=== PATIENT | male | born 1965 | race Caucasian/White ===

== ENCOUNTER 2017-12-11 13:49 | Inpatient (IN) | payer MEDICARE ==
[2017-12-11] VITALS (7 sets, daily range): BP systolic 107–115; BP diastolic 42–57
[~2017-12-11] VITALS: Ht 182.9 cm; Wt 86.6 kg
[~2017-12-11 13:49] MED LIST: LORTAB 5 OR; [UNRECOGNIZED DRUG - REMARK]; no home meds
--- NOTE | 2017-12-11 14:00 | NUR ---
PT AMBULATORY TO ROOM.
--- NOTE | 2017-12-11 14:45 | NUR ---
PATIENT MEDICATED WITH 30 MG OF TRADOL AND IV FLUIDS BOLUS. REPORTS NAUSEA AND ABD PAIN TO RIGHT LOWER QUADRANT. QUINN BEVERLY INFORMED. AWAITING NEW ORDERS.
[2017-12-11 14:52] LABS: HEMATOCRIT 46.9 % (39.0-50.0); HEMOGLOBIN 15.9 g/dl (14.0-18.0); IMMATURE GRANULOCYTES 0.5 % (0.0-1.0); MEAN CORPUSCULAR HGB 29.8 pG CALC (26.0-32.0); MEAN CORPUSCULAR HGB CONC 33.9 g/L CALC (32.0-36.0); NEUT# 15.17 thou/uL (1.82-7.42); RED BLOOD COUNT 5.33 mill/uL (4.70-6.10); RED CELL DISTRI WIDTH 12.7 % (11.5-15.5)
--- NOTE | 2017-12-11 15:00 | NUR ---
PATIENT MEDICATED WITH 4 MG OF ZOFRAN. EKG COMPLETED. WILL CONTINUE TO MONITOR.
[2017-12-11 15:14] LABS: ALKALINE PHOSPHATASE 106 u/l (38-126); ANION GAP 16 (6-22 (CALC)); BILIRUBIN, TOTAL 0.5 mg/dL (0.0-1.4); BUN 9 mg/dL (9-20); BUN/CREATININE RATIO 10 (12-20 (CALC)); CARBON DIOXIDE 23 mmol/l (22-30); CHLORIDE 106 mmol/l (95-108); CREATININE 0.8 mg/dL (0.7-1.3); GFR > 60 ML/MIN (>=60 (CALC)); GFR FOR AFR.AMER. > 60 ML/MIN (>=60 (CALC)); LIPASE 74 u/l (23-300); POTASSIUM 3.8 mmol/l (3.5-5.1); SGOT/AST 16 u/l (17-59); SGPT/ALT 42 u/l (21-72); SODIUM 141 mmol/l (137-146); TOTAL PROTEIN 6.6 g/dL (6.3-8.2)
--- NOTE | 2017-12-11 15:20 | NUR ---
PATIENT RESTING ON STRETCHER WITH COVERS OVER FACE, ALERT AND ORIENTED. REPORTS ABD PAIN 4/10 AT THIS TIME DENIES NAUSEA. NO VOMITING NOTED AT THIS TIME. URINAL PLACED WITHIN REACH. ASKED TO CALL FOR ASSISTANCE.
--- NOTE | 2017-12-11 16:20 | NUR ---
PATIENT DOES NOT RECALL NAMES OF HOME MEDICATIONS.
--- NOTE | 2017-12-11 16:20 | NUR ---
PHARMACY CONSULT ORDER PLACED. IV ANTIBIOTICS INFUSING WELL. WILL CONTINUE TO MONITOR.
--- NOTE | 2017-12-11 16:44 | NUR ---
ATTEMPT MADE TO CALL REPORT. SPOKE TO LENO. NURSE NOT AVAILABLE AT THIS TIME.
--- NOTE | 2017-12-11 16:46 | NUR ---
PATIENT REPORTS PAIN LEVEL 4/10 AT THIS TIME. UPDATED ON PLAN OF CARE. VERBAL UNDERSTANDING.
--- NOTE | 2017-12-11 16:56 | NUR ---
Med Rec consult received by Pharmacy. Per Liz, pt receives medication through ID. Liz will request that the pt have a family member bring in all meds to update home med list.
--- NOTE | 2017-12-11 17:09 | NUR ---
REPORT GIVEN TO DELILAH GERMAIN.
--- NOTE | 2017-12-11 17:15 | NUR ---
CALL PLACED TO QUINN DANIEL. UPDATED ON PATIENT STATUS. AWAITNG NEW ORDERS.
--- NOTE | 2017-12-11 17:35 | NUR ---
FROM ER VIA STRETCHER ACCOMPANIED BY FAMILY AND KENDRA MAZARIEGOS. AMBULATED TO BED WITH STEADY GAIT. RESPS EVEN AND UNLABORED ON ROOM AIR. #20 LAC INFUSING WITHOUT DIFFICULTY, SITE APPEARS HEALTHY. DENIES PAIN OR DISCOMFORT. ORIENTED TO ROOM AND CALL SYSTEM. SAFETY PRECAUTIONS REINFORCED. BED IN LOWEST POSITION WITH WHEELS LOCKED. CALL LIGHT WITHIN REACH. ENCOURAGED PT AND VISITORS TO CALL FOR ANY NEEDS.
--- NOTE | 2017-12-11 17:35 | NUR ---
PATIENT TRANSPORTED TO [facility] VIA STRETCHER WITH NORMAL SALINE BOLUS INFUSING. PATIENT ALERT AND ORIENTED. AMBULATES FROM STRETCHER TO SCALE AND TO BED WITH SETADY GAIT. BEDSIDE REPORT GIVEN TO DELILAH GERMANI. AT BEDSIDE. CARE RELINQUISHED.
--- NOTE | 2017-12-11 17:40 | NUR ---
DR ASHER AT BEDSIDE, AWAITING NEW ORDERS.
--- NOTE | 2017-12-11 17:45 | NUR ---
PHONE CALL FROM DR GONZALEZ, NEW ORDERS RECEIVED.
[2017-12-11] MEDS ORDERED: TENORMIN PO (17:54)
[2017-12-11] MEDS ORDERED: SIMVASTATIN40 MG PO (17:55)
--- NOTE | 2017-12-11 19:05 | NUR ---
TO OR VIA STRETCHER ACCOMPANIED BY VELMA MAZARIEGOS.
--- NOTE | 2017-12-11 21:15 | NUR ---
PATIENT RETURNED FROM OR VIA STRETCHER WITH OR STAFF IN ATTENDANCE. PATIENT IS AWAKE ALERT AND ORIENTEDX3. TRANSFERRED FROM STRETCHER TO BED. KIAH IS GOOD. PATIENT WITH BERNIE DRAIN TO LEFT ABD INTACT AND DRAINING SCANT AMT OF SEROSANGUINOUS DRAINAGE AT THIS TIME. IV SITE TO RIGHT UPPER FOREARM WITH IVF LR PATENT AND INFUSING ORDERED.ABD INCISIONS ARE INTACT WITH DERMABOND-NO DRAINAGE NOTED. PATIENT WITH NO COMPLAINTS AT THIS TIME. PROVIDED WITH ICE CHIPS AT THIS TIME. SCD'S IN PLACE. FAMILY AT BEDSIDE. SAFETY PRECAUTIONS REINFORCED. CALL LIGHT IN REACH. WILL CONT TO MONITOR.
[2017-12-11 21:49] LABS: URINE BILIRUBIN - DIPSTICK NEGATIVE (NEGATIVE); URINE BLOOD DIPSTICK NEGATIVE (NEGATIVE); URINE COLOR YELLOW; URINE GLUCOSE - DIPSTICK NEGATIVE (NEGATIVE); URINE KETONE NEGATIVE (NEGATIVE); URINE LEUK ESTERASE NEGATIVE (NEGATIVE); URINE NITRITE - DIPSTICK NEGATIVE (Negative); URINE PH 6.5 (4.5-8.0); URINE PROTEIN - DIPSTICK NEGATIVE (NEG-TRACE); URINE UROBILINOGEN - DIPSTICK 0.2 E.U./dL (0.2)
[2017-12-11 21:51] LABS: URINE CLARITY CLEAR
--- NOTE | 2017-12-11 22:16 | NUR ---
PATIENT UP TO VOID 500CC IN BR-CLEAR YELLOW URINE. BACK IN BED. PATIENT C/O POST-OP PAIN-MEDICATED WITH MORPHINE 4MG IVP ORDERED FOR PAIN. PATIENT ALSO MEDICATED WITH ZOFRAN FOR NAUSEA. TAKING SMALL AMT OF ICE CHIPS. INSTRUCTED PATIENT ON USE OF IS Q1H WHILE AWAKE 10 TIMES. ABLE TO DEMONSTRATE PROPER USE OF DEVICE. SAFETY PRECAUTIONS REINFORCED. CALL LIGHT IN REACH. WILLCONT TO MONITOR.
[2017-12-12 00:07] VITALS: BP 114/47
--- NOTE | 2017-12-12 00:19 | NUR ---
PATIENT RESTING IN BED-VS REMAINS STABLE. TOLERATING ICE CHIPS AND STARTED ON GATORADE-SO FAR TOLERATING WELL. IVF PATENT AND INFUSING VIA RIGHT FOREARM. IV ZOSYN HUNG ORDERED, NO COMPLAINTS AT THIS TIME. CALL LIGHT IN REACH. WILL CONT TO MONITOR.
--- NOTE | 2017-12-12 04:10 | NUR ---
PATIENT APPEARS SLEEPING AT THIS TIME. CALL LIGHT IN REACH. WILL CONT TO MONITOR.
[2017-12-12 04:25] VITALS: BP 93/50
[2017-12-12 06:16] LABS: IMMATURE GRANULOCYTES 0.3 % (0.0-1.0); MEAN CELL VOLUME 89.7 fL CALC (80.0-100.0); MEAN CORPUSCULAR HGB 29.9 pG CALC (26.0-32.0); MEAN CORPUSCULAR HGB CONC 33.3 g/L CALC (32.0-36.0); NEUT# 7.7 thou/uL (1.82-7.42); RED BLOOD COUNT 4.35 mill/uL (4.70-6.10); RED CELL DISTRI WIDTH 12.9 % (11.5-15.5)
[2017-12-12 06:32] LABS: ANION GAP 12 (6-22 (CALC)); BUN 7 mg/dL (9-20); BUN/CREATININE RATIO 8 (12-20 (CALC)); CARBON DIOXIDE 26 mmol/l (22-30); CHLORIDE 109 mmol/l (95-108); CREATININE 0.9 mg/dL (0.7-1.3); GFR > 60 ML/MIN (>=60 (CALC)); GFR FOR AFR.AMER. > 60 ML/MIN (>=60 (CALC)); SODIUM 144 mmol/l (137-146)
--- NOTE | 2017-12-12 07:00 | NUR ---
RECEIVED BEDSIDE REPORT FROM ELLIOT MAZARIEGOS. RESTING IN SUPINE POSITION WITH EYES CLOSED, AWAKEN SEASILY. RESPS EVEN AND UNLABORED ON ROOM AIR. #20 RFA INFUSING WITHOUT DIFFICULTY, SITE APPEARS HEALTHY. SCD'S TO BILAT LOWER EXTREMITIES. ABD SOFT, DERMABOND IN PLACE, BERNIE DRAIN PATENT, DRAINING SEROSANGUINOUS DRAINAGE. DENIES PAIN OR DISCOMFORT. PLAN OF CARE DISCUSSED. SAFETY PRECAUTIONS REINFORCED. BED IN LOWEST POSITION WITH WHEELS LOCKED. CALL LIGHT WITHIN REACH. ENCOURAGED PT TO CALL FOR ANY NEEDS.
[2017-12-12 07:36] VITALS: BP 96/54
--- NOTE | 2017-12-12 08:15 | NUR ---
TOLERATED REGULAR DIET WITHOUT C/O NAUSEA OR ABD PAIN.
--- NOTE | 2017-12-12 08:33 | NUR ---
AMBULATING IN HALLWAY WITH STEADY GAIT ACCOMPANIED BY QAMAR LOPEZ.
[2017-12-12 09:22] VITALS: BP 114/56
--- NOTE | 2017-12-12 09:30 | NUR ---
RESTING IN SEMI FOWLERS, RESPS EVEN AND UNLABORED ON ROOM AIR. BERNIE DRAIN PATENT TO LLQ, DERMABOND IN PLACE. SCD'S TO BILAT LOWER EXTREMITIES. MEDICATED WITH PERCOCET X2 PO FOR C/O 4/10 ABD PAIN. CALL LIGHT WITHIN REACH. ENCOURAGED PT TO CALL FOR ANY NEEDS.
[2017-12-12 12:27] VITALS: BP 134/55
--- NOTE | 2017-12-12 13:10 | NUR ---
DR ASHER AT BEDSIDE, NEW ORDERS RECEIVED.
--- NOTE | 2017-12-12 13:20 | NUR ---
DR GONZALEZ AT BEDSIDE, NEW ORDERS RECEIVED.
--- NOTE | 2017-12-12 13:50 | NUR ---
1 SUTURE REMOVED FROM BERNIE DRAIN, DRAIN REMOVED OREDERED. PT TOLERATED WELL.
--- NOTE | 2017-12-12 13:55 | NUR ---
IV site discontinued, cath intact. No edema , no redness, voices no discomfort.
--- NOTE | 2017-12-12 14:33 | NUR ---
Discharge instructions given. Patient verbalizes understanding of same. Discharged in stable condition via Wheelchair to Home with family. All belongings sent with pt.
== END 2017-12-12 14:33 | disposition home or self-care (01) | DRG 343 ==
LOC: ED 13:49 → ED-I 15:40 → ED 16:02 → MS2 16:03
PROVIDERS: Family Medicine; Nurse Practitioner; ADMIT Internal Medicine; ATTEND Internal Medicine
PROC: 0DTJ4ZZ Resection of Appendix, Percutaneous Endoscopic Approach (ICD-10-PCS; principal; 2017-12-11)
DX: K35.80 Unspecified acute appendicitis (principal); E86.9 Volume depletion, unspecified; I10 Essential (primary) hypertension; F17.210 Nicotine dependence, cigarettes, uncomplicated
CPT/HCPCS: J1650; J2710